=== PATIENT | female | born 1975 | race Caucasian/White ===

== ENCOUNTER 2021-05-22 00:33 | Emergency (ER) | payer BC ==
[~2021-05-22] VITALS: Ht 152.4 cm; Wt 62.6 kg
[2021-05-22 01:34] LABS: HEMATOCRIT 34.7 % (37.0-47.0); HEMOGLOBIN 12.3 gm/dL (12.0-15.0); MCH 33.4 pg (26.0-34.0); MCHC 35.5 g/dL (28.0-37.0); MCV 94.2 fL (80.0-100.0); MPV 8.1 fl. (7.2-11.1); RBC 3.69 mil/uL (4.20-5.00); RDW-CV 12.9 % (10.5-14.5)
[2021-05-22 01:36] LABS: URINE BILIRUBIN NEGATIVE (Negative); URINE BLOOD 1+ (Negative); URINE CLARITY CLEAR; URINE COLOR YELLOW; URINE GLUCOSE-RANDOM NEGATIVE (Negative); URINE KETONES NEGATIVE (Negative); URINE LEUKOCYTES-REFLEX NEGATIVE (Negative); URINE PROTEIN NEGATIVE (Negative); URINE SPECIFIC GRAVITY 1.025 (1.005-1.030); URINE UROBILINOGEN 0.2 E.U./dl (0.2-1.0)
[2021-05-22 01:38] LABS: URINE NITRITE-REFLEX POSITIVE (Negative)
[2021-05-22 01:39] LABS: CALCIUM 8.3 mg/dL (8.5-10.1); POTASSIUM 3.8 mmol/L (3.5-5.1)
[2021-05-22 01:43] LABS: ALBUMIN 3.4 g/dL (3.4-5.0); TOTAL BILIRUBIN 0.3 mg/dL (<0.1-1.0); TOTAL PROTEIN 7.2 g/dL (6.4-8.2)
[2021-05-22 01:46] LABS: BACTERIA-REFLEX >30 Many /HPF (None Seen); CASTS None Seen /LPF (None Seen); MUCUS 4-6 Moderate strn/LPF (None Seen); SQUAMOUS 0-3 Few /LPF (0-3); URINE WBC-REFLEX 6-15 Few /HPF (0-5)
[2021-05-22 01:47] LABS: AMORPHOUS URATES Moderate /LPF (None Seen)
[2021-05-22] MEDS ORDERED: MACROBID 100 M100 M1 PO (01:49)
[2021-05-22] MEDS ORDERED: IBUPROFEN 800800 MG PO (01:49)
[2021-05-22] MEDS ORDERED: ACETAMINOPHEN-1 EAC2 PO (01:49)
[2021-05-22 02:30] VITALS: BP 117/65
== END 2021-05-22 02:46 | disposition home or self-care (01) ==
LOC: M.ERS 00:33
PROVIDERS: Personal Emergency Response Attendant
DX: N39.0 Urinary tract infection, site not specified (principal); Z90.710 Acquired absence of both cervix and uterus; Z90.49 Acquired absence of other specified parts of digestive tract; Z88.5 Allergy status to narcotic agent; Z88.8 Allergy status to other drugs, medicaments and biological substances